=== PATIENT | female | born 2000 | race African-American/Black ===

== ENCOUNTER 2021-08-27 08:20 | Emergency (ER) | payer MEDICAID ==
[~2021-08-27] VITALS: Ht 167.6 cm; Wt 121.0 kg
[2021-08-27 10:38] VITALS: BP 135/75
[2021-08-27] MEDS ORDERED: ALBU6.7H9 INH (21:56)
[2021-08-27] MEDS ORDERED: BENZ-16 PO (21:56)
== END 2021-08-27 10:34 | disposition home or self-care (01) ==
LOC: ER 09:06
DX: R05.9 Cough, unspecified (principal); R51.9 Headache, unspecified; J02.9 Acute pharyngitis, unspecified; Z20.822 Contact with and (suspected) exposure to COVID-19
CPT/HCPCS: 87426; 99283

== ENCOUNTER 2021-08-27 19:28 | Emergency (ER) | payer MEDICAID, BC ==
[~2021-08-27] VITALS: Ht 172.7 cm; Wt 105.0 kg
[2021-08-27 19:51] VITALS: BP 150/90
[2021-08-27] MEDS ORDERED: BENZ-16 PO (21:56)
[2021-08-27] MEDS ORDERED: ALBU6.7H9 INH (21:56)
== END 2021-08-27 22:11 | disposition home or self-care (01) ==
LOC: ER 19:28
DX: Z20.822 Contact with and (suspected) exposure to COVID-19 (principal); R05.9 Cough, unspecified; R51.9 Headache, unspecified
CPT/HCPCS: 99282

== ENCOUNTER 2024-03-10 02:53 | Emergency (ER) | payer MEDICAID ==
[~2024-03-10] VITALS: Ht 170.2 cm; Wt 116.0 kg
[~2024-03-10 02:53] MED LIST: ALBU6.7H3 INH; BENZ-16 PO
[2024-03-10 03:19] VITALS: BP 140/69; RESP 18; TEMP 98.7; O2SAT 100
[2024-03-10 03:28] VITALS: PULSE 66
[2024-03-10] MEDS ORDERED: IBUP-2029 MT (05:36)
[2024-03-10] MEDS: ACETAMINOPHEN 325MG TABLET PO ONE (05:45)
== END 2024-03-10 09:04 | disposition home or self-care (01) ==
LOC: ER 02:53
DX: I82.611 Acute embolism and thrombosis of superficial veins of right upper extremity (principal)
CPT/HCPCS: 99282